=== PATIENT | female | born 1980 | race Hispanic/Latino ===

== ENCOUNTER 2019-04-18 21:21 | Inpatient (IN) | payer OTHER ==
[~2019-04-18] VITALS: Ht 177.8 cm; Wt 90.3 kg
[~2019-04-18 21:21] MED LIST: PREN-66 PO
[2019-04-18] MEDS ORDERED: LACTATED RINGERS 1000ML 1,000 ML IV SCH (21:45)
[2019-04-18 22:03] LABS: APPEARANCE,URINE Clear (CLEAR); BILIRUBIN,URINE Negative (NEGATIVE); COLOR,URINE Yellow (YELLOW); GLUCOSE, URINE (UA) Negative (NEGATIVE); KETONES,URINE Negative (NEGATIVE); LEUKOCYTE ESTERASE ,URINE Negative (NEGATIVE); NITRATE,URINE Negative (NEGATIVE); OCCULT BLOOD,URINE Trace (NEGATIVE); PROTEIN,URINE Negative (NEGATIVE); UROBILINOGEN,URINE 0.2 mg/dL (0.2-1.0)
[2019-04-18 22:11] LABS: BACTERIA,URINE Few /HPF (None Seen); MUCUS,URINE Rare LPF (None Seen)
[2019-04-18 22:21] VITALS: BP 101/64
[2019-04-18] MEDS ORDERED: LACTATED RINGERS 1000ML 1,000 ML IV PRN (22:58)
[2019-04-18] MEDS ORDERED: NALOXONE HCL 0.4 MG/1 ML ML IV PRN (23:00)
[2019-04-18] MEDS ORDERED: ROPIVACAINE 0.2% 100ML VIAL 100 ML EP SCH (23:00)
[2019-04-18] MEDS ORDERED: MEPERIDINE-PF 50 MG/ML SYG IVP PRN (23:00)
[2019-04-18] MEDS ORDERED: LACTATED RINGERS 500 ML 500 ML IV PRN (23:00)
[2019-04-18] MEDS ORDERED: PROMETHAZINE HCL 25 MG/ML 1ML AMPULE IM PRN (23:00)
[2019-04-18] MEDS ORDERED: EPHEDRINE SULFATE 50 MG/ML AMPULE IVP PRN (23:00)
[2019-04-18] MEDS ORDERED: AMPICILLIN 2GM+NS 100ML 100 ML IV SCH (23:15)
[2019-04-18 23:16] LABS: MEAN CORPUSCULAR HEMOGLOBIN 31.6 pg (27.0-33.0); MEAN CORPUSCULAR HGB CONC 34.9 g/dL (32.0-36.0); MEAN CORPUSCULAR VOLUME 90.5 fL (79-99); NUCLEATED RED BLOOD CELLS 0.1 % (0.0-0.19); PLATELET COUNT (AUTO) 197 K/uL (130-400); RED CELL DISTRIBUTION WIDTH 12.5 % (11.0-15.5)
[2019-04-18] MEDS ORDERED: AMPICILLIN 2GM+NS 100ML 100 ML IV ONE (23:17)
[2019-04-19] MEDS: AMPICILLIN 1GM+NS 50ML 50 ML IV SCH ×3 (03:24→11:00)
[2019-04-19] MEDS ORDERED: OXYTOCIN 10 USP UNITS/ML 20 UNIT in LACTATED RINGERS 1000ML 1,000 ML IV SCH (06:15)
[2019-04-19] MEDS ORDERED: OXYTOCIN-LR 20 UNITS/1000 ML 1,000 ML IV ONE ×2 (06:46→16:54)
[2019-04-19] MEDS ORDERED: BENZOCAINE/LANOLIN/ALOE VERA 60 ML AEROSOL TP PRN (16:00)
[2019-04-19] MEDS ORDERED: ACETAMINOPHEN-CODEINE 300/30MG TAB PO PRN (16:00)
[2019-04-19] MEDS ORDERED: LANOLIN 30GM OINTMENT TP PRN (16:00)
[2019-04-19] MEDS ORDERED: WITCH HAZEL 1 PAD TP PRN (16:00)
[2019-04-19] MEDS: IBUPROFEN 600 MG TABLET PO PRN (17:30)
[2019-04-19 17:50] VITALS: BP 121/68
[2019-04-19] MEDS ORDERED: PREN1TAB80 PO (18:56)
[2019-04-19] MEDS ORDERED: DIPH,PERTUSS(ACELL),TET VAC/PF 0.5 ML VIAL IM ONE (20:00)
[2019-04-19] MEDS ORDERED: FLU VACC QS2019-20 36MOS UP/PF 60 MCG/0.5 ML ML IM ONE (20:00)
[2019-04-19 20:21] VITALS: BP 113/62
[2019-04-19] MEDS: DOCUSATE SODIUM 100 MG CAP PO SCH (20:25)
[2019-04-19] MEDS: ACETAMINOPHEN 325 MG TAB PO PRN (20:48)
[2019-04-19 23:30] VITALS: BP 119/61
[2019-04-20] MEDS: IBUPROFEN 600 MG TABLET PO PRN ×2 (02:05→08:55)
[2019-04-20 07:00] VITALS: BP 119/69
--- NOTE | 2019-04-20 07:40 | NUR ---
ASSESSED AT THIS TIME AND VITAL SIGNS TAKEN AND PATIENT IS STABLE. LOCHIA IS SMALL AND PAIN IS TOLERABLE AND WILL MEDICATE WITH MOTRIN SCHEDULED FOR CRAMPING.
[2019-04-20] MEDS: DOCUSATE SODIUM 100 MG CAP PO SCH (08:50)
--- NOTE | 2019-04-20 09:30 | NUR ---
DR. BARNHART ROUNDED AND DISCHARGED PATIENT TO HOME. PATIENT IS STABLE AND WAS INFORMED TO FOLLOW UP IN CLINIC IN ONE WEEK.
--- NOTE | 2019-04-20 10:30 | NUR ---
ATTEMPTED TO GIVEN PATIENT DISCHARGE INSTRUCTIONS AND INDICATED TO COME BACK LATER. INFORMED PATIENT TO CALL WHEN READY.
[2019-04-20 11:00] VITALS: BP 101/58
--- NOTE | 2019-04-20 12:40 | NUR ---
PATIENT WAS GIVEN DISCHARGE INSTRUCTIONS AT THIS TIME PER PATIENT REQUEST. HAD ATTEMPTED TO GIVEN INSTRUCTIONS EARLIER AND PATIENT REQUESTED TO COME BACK LATER. PATIENT STATES HAVING SOME DISCOMFORT AND INFORMED SHE COULD HAVE PLAIN TYLENOL FOR PAIN AND INDICATED BEING OKAY WITH JUST TYLENOL 650MGS.
[2019-04-20] MEDS: ACETAMINOPHEN 325 MG TAB PO PRN (12:44)
--- NOTE | 2019-04-20 13:05 | NUR ---
PATIENT WAS TAKEN VIA W/C TO FAMILY VEHICLE IN STABLE CONDITION AND WAS DISCHARGED TO SPOUSE.
[2019-04-22 06:10] LABS: HEPATITIS Bs ANTIGEN SCREEN P Negative (Negative)
== END 2019-04-20 13:05 | disposition home or self-care (01) | DRG 807 ==
LOC: EDH 21:21 → OBSVTOIN 21:22 → LDH 21:22 → WSH 04-19 17:29
PROVIDERS: ADMIT Specialist; ATTEND Specialist
PROC: 10E0XZZ Delivery of Products of Conception, External Approach (ICD-10-PCS; principal; 2019-04-19)
PROC: 3E0R3BZ Introduction of Anesthetic Agent into Spinal Canal, Percutaneous Approach (ICD-10-PCS; 2019-04-19)
PROC: 00HU33Z Insertion of Infusion Device into Spinal Canal, Percutaneous Approach (ICD-10-PCS; 2019-04-19)
PROC: 3E0234Z Introduction of Serum, Toxoid and Vaccine into Muscle, Percutaneous Approach (ICD-10-PCS; 2019-04-19)
PROC: 3E0134Z Introduction of Serum, Toxoid and Vaccine into Subcutaneous Tissue, Percutaneous Approach (ICD-10-PCS; 2019-04-19)
DX: O75.89 Other specified complications of labor and delivery (principal); Z37.0 Single live birth; Z23 Encounter for immunization; Z3A.36 36 weeks gestation of pregnancy
CPT/HCPCS: 36415; 81001; 82120; 85027; 86592; 86850; 86900; 86901; 87340; 90715; A4314; A4606; G0008; G0378; J0290; J2590; J2795; J7120